=== PATIENT | female | born 1965 | race Caucasian/White ===

== ENCOUNTER 2016-12-16 10:38 | Emergency (ER) | payer SELFPAY ==
--- NOTE | ~2016-12-16 | ER ---
PATIENT'S NAME: WILD ROACH [facility] AGE: 51 Y [address] ROOM: [place] [address] LOCATION: ED ADMIT DATE: 12/16/2016 ER/Outpatient Report DISCHARGE DATE: 12/16/2016 FAMILY PHYSICIAN: PHYSICIAN, NO ATTENDING PHYSICIAN: Jie العلي TIME OF ARRIVAL: 10:38. TIME SEEN: 10:45. IDENTIFICATION: A 51-year-old female. CHIEF COMPLAINT: Chest pain. HISTORY OF PRESENT ILLNESS: The patient is a 51-year-old female, who presented with shaking, chest pain, shortness of breath, and tingling in her lips, onset at 6 a.m. She does have a lot of stress. She has lost her home, and is [facility]. She is a trained [employer], but working at a [employer]. She has had some other personal stressors including loss of relatives in the last year. She has never had problems with panic attacks or anxiety, but feels that this may be anxiety. She has no depression and no suicidal ideation, although she is tearful throughout her stay here in the Emergency Room. ALLERGIES: TO IMITREX. CURRENT MEDICATIONS: She denies. MEDICAL PROBLEMS: 1. Migraine headaches. 2. History of alcohol abuse, currently abstinent. PRIOR SURGERIES: 1. Cholecystectomy. 2. Bilateral knee surgery. 3. Appendectomy. 4. Tubal ligation. PATIENT'S NAME: WILD ROACH [facility] AGE: 51 Y [address] ROOM: [place] [address] LOCATION: ED ADMIT DATE: 12/16/2016 ER/Outpatient Report DISCHARGE DATE: 12/16/2016 FAMILY PHYSICIAN: PHYSICIAN, NO ATTENDING PHYSICIAN: Jie العلي SOCIAL HISTORY: The patient is currently [facility]. Tobacco, half pack per day. Alcohol, none for 3 years. Drug use, none currently; history of methamphetamine use. FAMILY HISTORY: Mother with cancer. REVIEW OF SYSTEMS: All the systems were reviewed and are negative other than what is noted in the HPI. PHYSICAL EXAMINATION: VITAL SIGNS: Weight is 64 kg. Blood pressure was 122/64, pulse was 67, respirations were 20, temperature was 96.9, and saturations were 98%. GENERAL: A 51-year-old, very anxious female, in no acute distress. HEENT: Head: Normocephalic and atraumatic. Ears: TMs were translucent in both ears. Eyes: Pupils were equal and reactive to light and accommodation. Extraocular movements were intact. Nose: Mucosa was pink. No lesions or drainage. Mouth: No lesions. Pharynx was benign. NECK: Supple. No lymphadenopathy. No thyromegaly. LUNGS: Clear to auscultation. HEART: Regular rate and rhythm. No murmur, rub, or gallop. ABDOMEN: Bowel sounds were present. Soft and nondistended. No hepatosplenomegaly. No palpable masses. Nontender. SKIN: [place], warm, and dry. No lesions or rashes were noted. NEUROLOGICAL: The patient was alert and oriented x4. Cranial nerves II through XII were grossly intact. Motor strength was 5/5 throughout. Sensation is intact to light touch. No lower extremity edema. No calf tenderness. The patient was given 1 mg of Ativan p.o., which improved her symptoms, although she did remain tearful. LABORATORY DATA AND DIAGNOSTIC STUDIES: EKG: Normal sinus rhythm at 76 beats per minute. No acute ST elevation or depression. No prior EKG was available for comparison. Sodium was 143, potassium was 3.9, chloride was 108, CO2 was 25, BUN was 18, creatinine was 0.6, and blood sugar was 108. Liver enzymes were normal. Magnesium is 1.9. Alcohol is less than 0.010. CPK of 106, CK-MB of 1.3, and troponin I was less than 0.040. TSH is 4.010 and T4 is 0.8. Urine drug screen was negative. Hemoglobin is 12.8, hematocrit is 38.5, platelets are 293, and white count is 6.8 with a normal differential. INR is 0.94. D-dimer is 0.42. Urine hCG is pending. Two-hour enzymes with CK-MB of 1.3 and troponin I of less than 0.040. PATIENT'S NAME: WILD ROACH [facility] AGE: 51 Y [address] ROOM: [place] [address] LOCATION: ED ADMIT DATE: 12/16/2016 ER/Outpatient Report DISCHARGE DATE: 12/16/2016 FAMILY PHYSICIAN: PHYSICIAN, NO ATTENDING PHYSICIAN: Jie العلي EMERGENCY ROOM COURSE: The patient was tearful every time I went in the room, so Eren Sahu was contacted and evaluated the patient. Recommended to keep her meeting with [facility] tomorrow. Call to get scheduled for therapy. Follow up regarding medical evaluation. IMPRESSION: Anxiety. PLAN: Home to rest. Keep appointment with [facility] tomorrow. Xanax 0.25 mg p.o. b.i.d. p.r.n. anxiety, dispensed two with 0 refills. Follow up at [facility] next week to establish care for Primary Care. The patient and her significant other understand and agree, and all questions have been answered. MD BIRD KAPOOR/barrett /[id number] d: 12/16/169 t: 12/19/16 0700, OUTPATIENT REPORT
[~2016-12-16 10:38] MED LIST: MOTRIN600 MG PO; PERCOCET 5-3251 EACH PO; PROTONIX40 MG PO
[2016-12-16 11:34] LABS: BASOPHIL % 0.6 %; EOSINOPHIL # 0.2 K/uL (0.0-0.5); EOSINOPHIL % 2.9 %; HEMATOCRIT 38.5 % (33.0-46.0); HEMOGLOBIN 12.8 g/dL (10.0-15.0); IMMATURE GRANULOCYTE % 0.1 %; LYMPHOCYTE # 1.4 K/uL (0.8-4.0); LYMPHOCYTE % 20.4 %; MCHC 33.2 gm/dL (32.0-36.5); MCV 87.1 fl (83.0-98.0); MONOCYTE # 0.7 K/uL (0.0-1.0); MONOCYTE % 9.7 %; NEUTROPHIL # (ANC) 4.5 K/uL (1.8-7.8); NEUTROPHIL % 66.3 %; NRBC % 0 /100WBC (0-0.00); PLATELET COUNT 293 K/uL (150-450); RBC 4.42 M/uL (3.50-5.50); RDW-CV 14.4 % (11.9-14.6); WBC 6.8 K/uL (4.0-11.0)
[2016-12-16 11:40] LABS: INR - (THERAPEUTIC) 0.94 (0.92-1.07); PROTIME 9.9 SECONDS (9.8-11.4); PTT 26 SECONDS (25-32)
[2016-12-16 11:46] LABS: BILIRUBIN URINE NEGATIVE (NEGATIVE); BLOOD URINE NEGATIVE /UL (NEGATIVE); GLUCOSE URINE NEGATIVE (NEGATIVE); KETONE URINE NEGATIVE (NEGATIVE); LEUKOCYTES URINE NEGATIVE /UL (NEGATIVE); NITRITE URINE NEGATIVE (NEGATIVE); PH URINE 6.5 (4.0-8.0); PROTEIN URINE NEGATIVE (NEGATIVE); UROBILINOGEN URINE NORMAL (NORMAL)
[2016-12-16 11:55] LABS: ALK PHOS 102 IU/L (33-138); ALT 43 IU/L (12-78); ANION GAP 13.9 (10.0-19.0); AST 28 IU/L (10-40); BLOOD UREA NITROGEN 18 mg/dL (6-24); CALCIUM 8.7 mg/dL (8.5-10.5); CHLORIDE 108 mMol/L (96-110); CO2 25 mMol/L (22-32); CPK 106 IU/L (21-215); CREATININE 0.6 mg/dL (0.5-1.1); ESTIMATED GFR (MDRD EQUATION) > 60; MAGNESIUM 1.9 mg/dL (1.8-2.6); POTASSIUM 3.9 mMol/L (3.7-5.1); SODIUM 143 mMol/L (135-145); TOTAL BILIRUBIN 0.4 mg/dL (0.0-1.5); TOTAL PROTEIN 7.3 g/dL (6.0-8.4)
[2016-12-16 11:55] LABS: COLOR URINE STRAW (YELLOW); TURBIDITY URINE CLEAR (CLEAR)
[2016-12-16 12:04] LABS: AMPHETAMINE NEGATIVE (NEGATIVE); BARBITURATE NEGATIVE (NEGATIVE); COCAINE NEGATIVE (NEGATIVE); OPIATES NEGATIVE (NEGATIVE)
[2016-12-16 13:47] LABS: CPK 95 IU/L (21-215)
== END 2016-12-16 14:17 | disposition disaster alternative care site (69) ==
LOC: GMED 10:38
PROVIDERS: Family Medicine
DX: F41.9 Anxiety disorder, unspecified (principal); G43.909 Migraine, unspecified, not intractable, without status migrainosus; F17.210 Nicotine dependence, cigarettes, uncomplicated; Z90.49 Acquired absence of other specified parts of digestive tract; Z98.890 Other specified postprocedural states; Z98.51 Tubal ligation status; Z88.8 Allergy status to other drugs, medicaments and biological substances; Z59.0 Homelessness
CPT/HCPCS: G0480

== ENCOUNTER 2016-12-29 15:12 | Emergency (ER) | payer SELFPAY ==
--- NOTE | ~2016-12-29 | ER ---
PATIENT'S NAME: WILD ROACH [facility] AGE: 51 Y [address] ROOM: [place] [address] LOCATION: ED ADMIT DATE: 12/29/2016 ER/Outpatient Report DISCHARGE DATE: 12/29/2016 FAMILY PHYSICIAN: PHYSICIAN, JIMMY ATTENDING PHYSICIAN: Jie العلي Time of Arrival: 1512 hours. Time Seen: 1558 hours. IDENTIFICATION: A 51-year-old female. CHIEF COMPLAINT: Vomiting, diarrhea, and headache. HISTORY OF PRESENT ILLNESS: The patient is a 51-year-old female who states her symptoms started Tuesday. Her significant other thought they started Tuesday evening after eating at a local restaurant. She states that she took her newly prescribed sertraline for the first time Tuesday morning 50 mg and she did not like how it made her feel. She said, "I can feel it." She thought it made her feel "high" and she has not felt well. She has had nausea, vomiting, diarrhea, and headache. No fever. Her stools now are not diarrhea and her last emesis was around noon. PAST MEDICAL HISTORY: Allergies: Imitrex. CURRENT MEDICATIONS: Denies. MEDICAL PROBLEMS: Migraine headaches; history of alcohol abuse, currently abstinent; chronic chest pain; anxiety. She was recently seen here in the emergency room for anxiety on December 16, 2016. PRIOR SURGERIES: Cholecystectomy, bilateral knee surgeries, appendectomy, and tubal ligation. SOCIAL HISTORY: [facility]. Tobacco use, half pack per day for 24 years. Alcohol use, none for the last 3 years. Methamphetamine use, last use was 3 years ago. FAMILY HISTORY: PATIENT'S NAME: WILD ROACH [facility] AGE: 51 Y [address] ROOM: [place] [address] LOCATION: ED ADMIT DATE: 12/29/2016 ER/Outpatient Report DISCHARGE DATE: 12/29/2016 FAMILY PHYSICIAN: PHYSICIANJIMMY ATTENDING PHYSICIAN: Jie العلي Mother with cancer. REVIEW OF SYSTEMS: All systems are reviewed and negative other than what is noted in the HPI. PHYSICAL EXAMINATION: VITAL SIGNS: Height 5 feet 2 inches, weight 63.7 kg, blood pressure 100/59, pulse 56, respirations 18, temperature 97.7, saturations 98%. GENERAL: A 51-year-old female, in no acute distress. HEENT: Head: Normocephalic, atraumatic. Eyes: Pupils are equal and reactive to light and accommodation. Extraocular movements intact. Nose: Mucosa pink. No lesions. Mouth: No lesions. Pharynx benign. NECK: Supple. No lymphadenopathy. LUNGS: Clear to auscultation. HEART: Regular rate and rhythm. No murmur, rub, or gallop. ABDOMEN: Bowel sounds present. Soft, nondistended. No hepatosplenomegaly. No palpable masses. Nontender. SKIN: [place], warm, and dry. No lesions or rashes noted. NEURO: The patient is alert and oriented x4. Cranial nerves 2 through 12 grossly intact. Motor strength 5/5 throughout. Sensation is intact to light touch. PSYCH: The patient does have some mild anxiety symptoms. No depression and no suicidal ideation. EMERGENCY DEPARTMENT COURSE: An IV was initiated. Zofran 4 mg IV was given, 1 liter of IV fluids. Sodium 140, potassium 3.8, chloride 109, CO2 24, BUN 16, creatinine 0.5. Blood sugar 89. Liver enzymes are normal. Amylase 58, lipase 112, hemoglobin 13.6, hematocrit 40.9, platelets 308. White count 6.4 with a normal differential. The patient had no diarrheal stools here to be sent for culture. She had no further episodes of vomiting. She was feeling better after the 1 liter of fluids. IMPRESSION: 1. Nausea, vomiting, and diarrhea, improved. 2. Anxiety. PLAN: Clear liquids, small amounts at frequent intervals. Advance diet as tolerated. Zofran 4 mg 1 p.o. q.6 hours p.r.n. nausea, dispensed 4 with 0 refills. Zoloft, she will decrease to 1/2 tablet daily for 7 days, then back up to one full tablet daily. If she does not tolerate that, she will [facility]. The patient understands and agrees, and all questions have been answered. PATIENT'S NAME: WILD ROACH [facility] AGE: 51 Y [address] ROOM: [place] [address] LOCATION: [facility] ADMIT DATE: 12/29/2016 ER/Outpatient Report DISCHARGE DATE: 12/29/2016 FAMILY PHYSICIAN: JIMMY GILLETTE ATTENDING PHYSICIAN: Jie العلي MD BIRD KAPOOR/fabil /[id number] d: 12/30/16 0046 t: 01/04/17 1014, OUTPATIENT REPORT
[2016-12-29 16:08] LABS: BASOPHIL # 0.1 K/uL (0.0-0.2); BASOPHIL % 0.8 %; EOSINOPHIL # 0.1 K/uL (0.0-0.5); EOSINOPHIL % 1.3 %; HEMATOCRIT 40.9 % (33.0-46.0); HEMOGLOBIN 13.6 g/dL (10.0-15.0); IMMATURE GRANULOCYTE % 0.3 %; LYMPHOCYTE # 1.5 K/uL (0.8-4.0); LYMPHOCYTE % 23.1 %; MCH 28.8 pg (27.0-34.0); MCHC 33.3 gm/dL (32.0-36.5); MCV 86.7 fl (83.0-98.0); MONOCYTE # 0.5 K/uL (0.0-1.0); MONOCYTE % 7.2 %; MPV 10.1 fl (9.4-12.4); NEUTROPHIL # (ANC) 4.3 K/uL (1.8-7.8); NEUTROPHIL % 67.3 %; NRBC % 0 /100WBC (0-0.00); PLATELET COUNT 308 K/uL (150-450); RBC 4.72 M/uL (3.50-5.50); RDW-CV 14.1 % (11.9-14.6); WBC 6.4 K/uL (4.0-11.0)
[2016-12-29 16:25] LABS: ALBUMIN 3.5 gm/dL (3.5-5.0); ALK PHOS 90 IU/L (33-138); ALT 32 IU/L (12-78); ANION GAP 10.8 (10.0-19.0); AST 29 IU/L (10-40); BLOOD UREA NITROGEN 16 mg/dL (6-24); CALCIUM 8.9 mg/dL (8.5-10.5); CHLORIDE 109 mMol/L (96-110); CO2 24 mMol/L (22-32); CREATININE 0.5 mg/dL (0.5-1.1); ESTIMATED GFR (MDRD EQUATION) > 60; POTASSIUM 3.8 mMol/L (3.7-5.1); SODIUM 140 mMol/L (135-145); TOTAL PROTEIN 6.8 g/dL (6.0-8.4)
[2016-12-29 16:27] LABS: TOTAL BILIRUBIN 0.5 mg/dL (0.0-1.5)
== END 2016-12-29 17:32 | disposition disaster alternative care site (69) ==
LOC: GMED 15:12
PROVIDERS: Family Medicine
DX: R11.2 Nausea with vomiting, unspecified (principal); R19.7 Diarrhea, unspecified; F41.9 Anxiety disorder, unspecified; G89.29 Other chronic pain; R07.9 Chest pain, unspecified; F15.90 Other stimulant use, unspecified, uncomplicated; F17.210 Nicotine dependence, cigarettes, uncomplicated; Z88.8 Allergy status to other drugs, medicaments and biological substances; Z90.49 Acquired absence of other specified parts of digestive tract; Z98.51 Tubal ligation status
CPT/HCPCS: J2405; J7030